=== PATIENT | female | born 1965 | race Caucasian/White ===

== ENCOUNTER → 2023-03-01 14:44 | Outpatient (CLI) | payer MEDICAID, SELFPAY | PROVIDERS: PCP Physician Assistant; Visit Provider Physician Assistant | DX: N39.0 Urinary tract infection, site not specified (principal) | CPT/HCPCS: 87086 ==

== ENCOUNTER → 2023-03-07 14:30 | Outpatient (CLI) | payer MEDICAID, SELFPAY | PROVIDERS: PCP Physician Assistant; Visit Provider Physician Assistant | DX: N39.0 Urinary tract infection, site not specified (principal) ==

== ENCOUNTER → 2023-03-07 14:42 | Outpatient (CLI) | payer MEDICAID, SELFPAY ==
[2023-03-07 15:24] LABS: Basophils # 0.1 K/mm3 (0-0.2); Basophils % 1.2 % (0.1-2.0); Eosinophils # 0.2 K/mm3 (0.0-0.4); Eosinophils % 3.6 % (0.1-12.0); Hematocrit 42.6 % (37.0-47.0); Hemoglobin 13.7 g/dL (12.2-16.2); Lymphocytes # 2.4 K/mm3 (0.7-4.5); Lymphocytes % 42.7 % (10-50); Mean Corpuscular Hemoglobin 28.8 pg (27.0-31.2); Mean Corpuscular Volume 89.8 fl (81-99); Mean Platelet Volume 7.2 fl (7.4-10.4); Monocytes # 0.3 K/mm3 (0.1-1.0); Monocytes % 6.3 % (1.7-9.3); Neutrophils # 2.6 K/mm3 (1.8-7.8); Neutrophils % 46.3 % (37.0-80.0); Platelet Count 237 K/mm3 (142-424); Red Blood Count 4.75 M/mm3 (4.20-5.40); Red Cell Distribution Width 13.7 % (11.5-17.5); White Blood Count 5.5 K/mm3 (4.8-10.8)
[2023-03-07 15:46] LABS: Alanine Aminotransferase 75 U/L (12-78); Albumin Level 4.5 g/dl (3.5-5.0); Albumin/Globulin Ratio 1.9 (1.1-1.8); Alkaline Phosphatase 55 U/L (38-126); Anion Gap 15.6 mEq/L (5-15); Aspartate Amino Transferase 60 U/L (14-36); Bilirubin,Total 0.3 mg/dl (0.2-1.3); Blood Urea Nitrogen 8 mg/dl (7-17); Calcium 9.4 mg/dl (8.4-10.2); Carbon Dioxide 29 mmol/L (22.0-30.0); Chloride 101 mmol/L (98-107); Chol/HDL Ratio 3.3 (1-3.5); Cholesterol 220 mg/dl (140-200); Estimated Glomerular Filt Rate 87 ml/min (>60); GFR (African American) 105 ML/MIN (>60); Globulin 2.4 g/dL (1.3-3.2); Glucose 105 mg/dl (74-100); HDL Cholesterol 66 mg/dl (40-60); Potassium 3.6 mmoL/L (3.5-5.1); Sodium 142 mmol/L (136-145); Total Protein,Serum 6.9 g/dl (6.3-8.2); Triglycerides 213 mg/dl (30-150); VLDL Cholesterol 43 mg/dL (0-40)
[2023-03-07 15:57] LABS: Direct LDL Cholesterol 109.82 mg/dL (100-129)
[2023-03-07 16:01] LABS: Free T4 (Free Thyroxine) 0.94 ng/dl (0.78-2.19)
== END ==
PROVIDERS: PCP Physician Assistant; Visit Provider Physician Assistant
DX: R53.83 Other fatigue (principal); E03.9 Hypothyroidism, unspecified; K59.00 Constipation, unspecified; N39.0 Urinary tract infection, site not specified
CPT/HCPCS: 36415; 80053; 80061; 84439; 84443; 85025; 87086

== ENCOUNTER → 2023-06-24 09:25 | Outpatient (CLI) | payer MEDICAID, SELFPAY ==
--- NOTE | 2023-06-24 09:25 | MR_ITS ---
FINAL REPORT CLINICAL HISTORY: left knee pain crunching when going down stairs fall x 1 year ago FINDINGS: Multi planar MR imaging was performed of the left knee. The anterior and posterior cruciate ligaments are intact. The quadriceps and patellar tendons are intact. The medial and lateral menisci are intact without evidence of tear. The medial and lateral collateral ligaments appear intact. The medial and lateral retinacula appear intact. There is no evidence of bone marrow edema. There are multiple osteochondral lesions in the lateral articular facet of the patella. A tiny popliteal cyst is noted. No evidence of soft tissue inflammatory reaction. IMPRESSION: No evidence of significant internal derangement. Multiple osteochondral lesions along the left lateral articular facet of the patella. Small popliteal cyst. Reviewed, Interpreted and Dictated by Donovan Soliz MD Transcribed by Brook Ty Authenticated and [facility]
== END ==
PROVIDERS: PCP Physician Assistant; Visit Provider Physician Assistant
DX: M25.562 Pain in left knee (principal)
CPT/HCPCS: 73721

== ENCOUNTER → 2023-09-07 23:00 | Outpatient (CLI) | payer MEDICAID, SELFPAY ==
[2023-09-07 18:57] LABS: Amphetamine/Metha Screen,Urine Negative ng/ml (<1000)
[2023-09-07 18:58] LABS: Barbiturates Screen,Urine Negative ng/ml (<200)
[2023-09-07 18:59] LABS: Benzodiazepines Screen,Urine Negative ng/ml (<200)
[2023-09-07 19:03] LABS: Phencyclidine Screen,Urine Negative ng/ml (<25)
[2023-09-07 19:12] LABS: Cannabinoid Screen,Urine Positive ng/ml (<50)
[2023-09-07 19:31] LABS: Opiate Screen,Urine Negative ng/ml (<300)
[2023-09-07 19:32] LABS: Cocaine Screen,Urine Negative ng/ml (<300); Methadone Screen,Urine Negative ng/ml (<300)
== END ==
PROVIDERS: PCP Physician Assistant; Visit Provider Physician Assistant
DX: F41.9 Anxiety disorder, unspecified (principal)
CPT/HCPCS: 80305

== ENCOUNTER 2024-03-22 10:44 | Outpatient (CLI) | payer MEDICAID, SELFPAY ==
--- NOTE | 2024-03-22 10:49 | XR_ITS ---
FINAL REPORT CLINICAL HISTORY: lt knee pain FINDINGS: LEFT KNEE 3 views of the left knee were obtained. There is no acute fracture or dislocation. Visualized joint spaces are normally aligned. Soft tissues are unremarkable. IMPRESSION: No acute bony abnormality. Reviewed, Interpreted and Dictated by Dago Lal MD Transcribed by Yudi Oakley Authenticated and [facility]
== END 2024-03-22 23:59 | disposition home or self-care (01) ==
LOC: RAD 10:45
PROVIDERS: PCP Family Medicine; Visit Provider Physician Assistant Surgical
DX: M25.562 Pain in left knee (principal)
CPT/HCPCS: 73562

== ENCOUNTER 2025-03-28 10:14 | Outpatient (CLI) | payer MEDICAID, SELFPAY ==
--- OUTSIDE RECORDS SUMMARY | 2025-03-19 15:00 | XMS_ITS | Encounter Summary ---
Author Organization [facility] In iatives Address [address] [place] [address] Care Team Providers Care Cutter Plastics Rolls Name Role Phone Ho Deras DO Primary Care Provider [phone] Reason for Referral * Surgical (Routine) - New Request Specialty Diagnoses / Procedures Referred By Nilson zuleta Referred To Contact Orthopedic Surgery Diagnoses Pain in joint of left shoulder Ho Deras DO [address] [place] [address] Phone: tel: Referral ID Status Reason Start Date Expiration Date Visits Requested Visits Authorized [id number] New Request Specialty Services Required 03/19/2025 03/19/2026 1 1 Reason for Visit * Reason Comments Follow-up Patient is here toda y for a follow up.PHQ: 0 Encounter Details Date Type Department Care Team (Late st Contact Info) Description 03/19/2025 3:00 PM EDT Office Visit [facility] Primary Care - [facility] [address] [place] [address] Ho Deras DO [address] [place] [address] Pain in joint of left shoulder (Primary Dx); Hot flashes due to menopause; Anxiety; Primary insomnia; Cervical radiculopathy; Restless legs syndrome Social History Tobacco Use Types Packs/Day Years Used Date Smoking Tobacco: Never Smokeless Tobacco: Never Alcohol Use Standard Drinks/Week Comments Yes 0 (1 standard drink = 0.6 oz pur e alcohol) PHQ-2 Answer Date Recorded Patient Health Questionnaire-2 Score 0 03/19/2025 Interpersonal Safety Answer Date Record ed Family or friends hurt you Not on file 10/20 Family or friends insult you Not on file Family or friends threaten you Not on file 0 10/20/2023 Family or friends scream or curse at you Not on file 10/20/2023 Housing Stability Answer Date Recorded Living situation today Not on file Living situation problems Not on file 2023 Family and Community Support Answer Wilbur e Recorded Help with Day to Day Activities Not on file 10/20/2023 Feeling Lonely or Isolated Not on file 10/20 Educational Attainment Answer Date Johnny rded Speak language other than Jordanian at home Not on file 10/20/2023 Want help with school or training Not on file 10/20/2023 Depression Answer Date Recorded PHQ-2 Risk Not on file 10/20/2023 Disabilities Answer Date Recorded Difficulty concentrating Not on file 024 Difficulty doing errands alone Not on file 0 10/20/2023 Substance Use Answer Date Recorded Used prescription meds for non-medical reasons N ot on file 10/20/2023 Used illegal drugs past 12 months Not on file 10/20/2023 Comments Unknown Sex and Gender Information Value Date Recorded Sex Assigned at Not on file Legal Sex Female 5:13 PM CDT Gender Identity Not on file Sexual Orientation Not on file documented as of this encounter Last Filed Vital Signs Vital Sign Reading Time Taken Comments Blood Pressure 124/76 03/19/2025 2:58 PM EDT Pulse 78 03/19/2025 2:58 PM EDT Temperature - - Respiratory Rate - - Oxygen Saturation 96% 03/19/2025 2:58 PM EDT Inhaled Oxygen Concentration - - Weight 77.1 kg (170 lb) 03/19/2025 2:58 PM EDT Height 162.6 cm (5' 4 ) 03/19/2025 2:58 PM EDT Body Mass Index 29.18 03/19/2025 2:58 PM EDT documented in this encounter Progress Notes * Ho Deras, - 03/19/2025 3:22 PM EDTAssociated Problem(s): Restless legs syndrome Cont on gabapentin 600 at bedtime. Cont on ropinirol 1 mg. Taking one at bedtime at this time. * Ho Deras DO - 03/19/2025 3:20 PM EDTAssociated Problem(s): Cervical radiculopathy Sundar reviewed. She cont on gabapneitn at bedtime. * Ho Deras DO - 03/19/2025 3:17 PM EDTAssociated Problem(s): Anxiety Taper down paroxetine to 20mg daily. Worse due to grief. Encouraged counseling. Start remeron 30 at bedtime. * Ho Deras DO - 03/19/2025 3:16 PM EDTAssociated Problem(s): Hot flashes due to menopause Taper down paxil to 20mg * Ho Deras DO - 03/19/2025 3:09 PM EDTAssociated Problem(s): Arthralgia of shoulder Will refer to ortho due ot hx of rotator cuff tear and recent fall for further evaluation. * Ho Deras DO - 03/19/2025 3:00 PM EDT 03/19/2025 Subjective: Brad Terry is a 59 y.o. female. Chief Complaint Patient presents with Follow-up Patient is here today for a follow up. PHQ: 0 HarrisonKarla izquierdocecil patient presents for follow up Cervical radiculopathy - cont on gabapentin 600 at bedtime RLS - ropinirole Insomnia - quetiapine 50mg She reports this issue is worse. She endorses grief related. Reports unable to shut her mind down Anxiety - paxil 20mg - [place]. She reports not doing this. Reports this session was completed. She is tearful in this conversation. Reports tired of crying. Encouraged he to get counseling. CMP reviewed from 10/02/24 lipids last 08/2024 Having incresaed left shoulder issues. She had surgery on this 3-4 years ago ago. She had surgery at . States she fell about 3 weeks ago on her right side but the next day she had issues w/ the left shoulder. She has seen chiro and tried some manipulation. She states has tried tylenol w/ little benefit. Current Outpatient Medications: azelastine (ASTELIN) 137 mcg (0.1 %) nasal spray, 1 spray by each nostril route 2 (two) times dailyUse in each nostril as directed., Disp: 30 mL, Rfl: 3 cyclobenzaprine (FLEXERIL) 10 MG tablet, Take 1 tablet by mouth 2 (two) times daily., Disp: , Rfl: docusate sodium (COLACE) 100 MG capsule, Take 1 capsule (100 mg total) by mouth 2 (two) times dailyas needed for constipation., Disp: 60 capsule, Rfl: 1 eletriptan (RELPAX) 40 MG tablet, TAKE ONE TABLET BY MOUTH AT ONSET OF HEADACHES OR MIGRAINE FOR 1 DOSE. DO NOT EXCEED 2 TABLETS IN 24 HOURS., Disp: 6 tablet, Rfl: 2 fluticasone propionate (FLONASE) 50 mcg/actuation nasal spray, 1 spray by each nostril route daily., Disp: 15.8 mL, Rfl: 3 gabapentin (NEURONTIN) 600 MG tablet, Take 1 tablet (600 mg total) by mouth nightly. Max Daily Amount: 600 mg, Disp: 90 tablet, Rfl: 1 galcanezumab-gnlm (Emgality Pen) 120 mg/mL pen, Inject by subcutaneous route for 30 days., Disp: , Rfl: methocarbamoL (ROBAXIN) 750 MG tablet, TAKE 1 TABLET BY MOUTH 2 TIMES A DAY NEEDED FOR MUSCLE SPASMS, Disp: 30 tablet, Rfl: 1 mirtazapine (REMERON) 30 MG tablet, Take 1 tablet (30 mg total) by mouth nightly., Disp: 30 tablet,Rfl: 2 montelukast (SINGULAIR) 10 mg tablet, TAKE 1 TABLET BY MOUTH DAILY, Disp: 90 tablet, Rfl: 0 multivitamin capsule, Take 1 capsule by mouth., Disp: , Rfl: Nurtec ODT 75 mg TbDL, TAKE ONE TABLET BY MOUTH DAILY NEEDED FOR MIGRAINE., Disp: 15 tablet, Rfl: 2 omega 0-vei-bfo-fish oil (Fish OiL) 120-180-500 mg Cap, Take 500 mg by mouth., Disp: , Rfl: PARoxetine (PAXIL) 20 MG tablet, Take 1 tablet (20 mg total) by mouth in the morning., Disp: 90 tablet, Rfl: 1 QUEtiapine (SEROquel) 50 MG tablet, Take 1 tablet (50 mg total) by mouth nightly., Disp: 90 tablet,Rfl: 1 rOPINIRole (REQUIP) 1 MG tablet, Take 1 tablet (1 mg total) by mouth nightly., Disp: 90 tablet, Rfl: 1 Review of Systems Respiratory: Negative. Cardiovascular: Negative. Gastrointestinal: Negative. Musculoskeletal: Positive for arthralgias. Psychiatric/Behavioral: Positive for decreased concentration, dysphoric mood and sleep disturbance.The patient is nervous/anxious. All other systems reviewed and are negative. Past Medical History: Diagnosis Date Cubital tunnel syndrome, left Depression Dermatofibroma of calf Knee pain Lateral epicondylitis Past Surgical History: Procedure Laterality Date CARPAL TUNNEL RELEASE COLONOSCOPY in 2014 ELBOW SURGERY TUBAL LIGATION Family History Problem Relation Name Age of Onset Pancreatic cancer Father Liver cancer Father Coronary artery disease Father Breast cancer Maternal Grandmother reports that she has never smoked. She has never used smokeless tobacco. She reports current alcohol use. Objective: BP 124/76 (BP Location: Left arm, Patient Position: Sitting) Pulse 78 Ht 1.626 m (5' 4 ) Wt 77.1 kg (170 lb) SpO2 96% BMI 29.18 kg/m?? Body mass index is 29.18 kg/m??. Physical Exam Vitals and nursing note reviewed. Constitutional: Appearance: Normal appearance. HENT: Head: Normocephalic and atraumatic. Mouth/Throat: Mouth: Mucous membranes are dry. Pharynx: Oropharynx is clear. Eyes: Pupils: Pupils are equal, round, and reactive to light. Cardiovascular: Rate and Rhythm: Normal rate and regular rhythm. Pulses: Normal pulses. Heart sounds: Normal heart sounds. Pulmonary: Effort: Pulmonary effort is normal. Breath sounds: Normal breath sounds. Abdominal: General: Abdomen is flat. Palpations: Abdomen is soft. Musculoskeletal: General: Normal range of motion. Cervical back: Neck supple. Skin: General: Skin is warm and dry. Neurological: Mental Status: She is alert. Psychiatric: Mood and Affect: Mood normal. Behavior: Behavior normal. Judgment: Judgment normal. No results found for this visit on 03/19/25 (from the past 24 hours). Assessment: Problem List Items Addressed This Visit Arthralgia of shoulder - Primary Overview S/p left shoulder surgery at Current Assessment & Plan Will refer to ortho due ot hx of rotator cuff tear and recent fall for further evaluation. Relevant Orders Ambulatory referral to Orthopedic Surgery Cervical radiculopathy Current Assessment & Plan Sundar reviewed. She cont on gabapneitn at bedtime. Relevant Medications gabapentin (NEURONTIN) 600 MG tablet rOPINIRole (REQUIP) 1 MG tablet Hot flashes due to menopause Current Assessment & Plan Taper down paxil to 20mg Relevant Medications PARoxetine (PAXIL) 20 MG tablet Insomnia Relevant Medications QUEtiapine (SEROquel) 50 MG tablet Restless legs syndrome Current Assessment & Plan Cont on gabapentin 600 at bedtime. Cont on ropinirol 1 mg. Taking one at bedtime at this time. Relevant Medications rOPINIRole (REQUIP) 1 MG tablet Anxiety Current Assessment & Plan Taper down paroxetine to 20mg daily. Worse due to grief. Encouraged counseling. Start remeron 30 at bedtime. Relevant Medications mirtazapine (REMERON) 30 MG tablet PARoxetine (PAXIL) 20 MG tablet Return in about 6 weeks (around 04/30/2025) for Recheck. Ho Deras DO documented in this encounter Plan of Treatment Upcoming Encounters Date Type Department Care Team (Late st Contact Info) Description 04/30/2025 3:00 PM EDT Office Visit [facility] Primary Care - [facility] [address] [place] [address] Ho Deras DO [address] [place] [address] Scheduled Referrals Name Type Priority Associated Diagnoses Order Schedule Ambulatory referral to Orthopedic Surgery Outpatient Referral Routine Pain in joint of left shoulder Expected: 03/19/2025, Expires: 03/19/2026 documented as of this encounter Visit Diagnoses Diagnosis Pain in joint of left shoulder- Primary Hot flashes due to menopause Anxiety Anxiety state, unspecified Primary insomnia Persistent disorder of initiating or maintaining sleep Cervical radiculopathy Brachial neuritis or radiculitis nos Restless legs syndrome Restless legs syndrome (RLS) documented in this encounter Care Teams Cutter Plastics Rolls Relationship Specialty Start Date End Date Ho Deras DO [address] [place] [address] PCP - General Family Medicine 08/24/22 documented as of this encounter
--- NOTE | 2025-03-28 10:17 | XR_ITS ---
FINAL REPORT CLINICAL HISTORY: Left shoulder pain, fall 3 weeks ago COMPARISON: None FINDINGS: Two views of the left shoulder show the glenohumeral joint is intact. There is an age-indeterminate left clavicle fracture. Dedicated clavicle radiographs recommended. Moderate AC joint arthropathy is noted. IMPRESSION: Age indeterminate distal clavicle fracture. Recommend clavicle radiographs. Reviewed, Interpreted and Dictated by Dago Lal MD Transcribed by Kaylen Harrison Authenticated and [facility]
--- OUTSIDE RECORDS SUMMARY | 2025-03-28 10:18 | XMS_ITS | Encounter Summary ---
Author Organization [facility] In iatives Address [address] [place] [address] Care Team Providers Care Terminal System Operator Name Role Phone Ho Deras DO Primary Care Provider [phone] Encounter Details Date Type Department Care Team (Latest Contact Info) Description 03/19/2025 Travel Social History Tobacco Use Types Packs/Day Years [...] Date Johnny rded Speak language other than Sudanese at home Not on file 10/20/2023 Want [...] on file documented as of this encounter Plan of Treatment Upcoming Encounters Date Type Department Care Team (Late st Contact Info) Description 04/30/2025 3:00 PM EDT Office Visit [facility] Primary Care - [facility] [address] [place] [address] Ho Deras DO [address] [place] [address] documented as of this encounter Visit Diagnoses Not on filedocumented in this encounter Care Teams Terminal System Operator Relationship Specialty Start Date End Date Ho Deras DO [address] [place] [address] PCP - General Family Medicine 08/24/22 documented as of this encounter
--- OUTSIDE RECORDS SUMMARY | 2025-03-28 10:18 | XMS_ITS | Encounter Summary ---
Author Organization [facility] In [facility]atives Address [address] [place] [address] Care Team Providers Care Correctional Counselor Name Role Phone Ho Deras DO Primary Care Provider [phone] Reason for Visit * Reason Onset Date Comments Medication Refill 05/14/2024 Encounter Details Date Type Department Care Team (Late st Contact Info) Description 05/14/2024 Telephone [facility] Primary Care - [facility] [address] [place] [address] Ho Deras DO [address] [place] [address] Medication Refill Social History Tobacco Use Types Packs/Day Years Used Date Smoking Tobacco: Never Smokeless Tobacco: Never Alcohol Use Standard Drinks/Week Comments Yes 0 (1 standard drink = 0.6 oz pur e alcohol) PHQ-2 Answer Date Recorded Patient Health Questionnaire-2 Score 0 12/27/2023 Interpersonal Safety Answer Date Record ed Family [...] Date Johnny rded Speak language other than South African at home Not on file 10/20/2023 Want [...] on file documented as of this encounter Miscellaneous Notes * Telephone Encounter - Nemo Oneill - 05/15/2024 3:24 PM EDT Next Visit: 07/03/2024 Last Visit: 12/27/2023 Ho Deras, DO Caller Message Patient called in to check on refills,went to pharmacy and they weren't there yet and was concernedthere was a issue. Made patient aware of refill time frame. Wanted a call back if there was a issueor if she needed to come in to be seen Is follow up action needed? Explain: Caller Name:Brad Terry Relation to patient: Best Call Back OK to leave message on voicemail: * Telephone Encounter - Clara Dacosta - 05/14/2024 10:41 AM EDT Reason for Call: Refill request (not on med list) Next Visit: 07/03/2024 Last Visit: 12/27/2023 Ho Deras, DO Appointment offered if no next visit scheduled? No Is patient requesting more than one medication refill? Yes Medication name: QUEtiapine (SEROquel) 100 MG tablet rOPINIRole (REQUIP) 1 MG tablet montelukast (SINGULAIR) 10 mg tablet Quantity: 90 day supply Last Refill: n/a [facility] [id number] - [place] [address] AT [facility] [address] [phone] Patient Advised: Refills can take up to 72 hours to be verified, processed, and refilled, Please contact the pharmacy to verify the prescription is complete and ready for pick-up. Additional information: Caller Name: Relation to patient: Self Best Call Back OK to leave message on voicemail: documented in this encounter Plan of Treatment Upcoming Encounters Date Type Department Care Team (Late st Contact Info) Description 04/30/2025 3:00 PM EDT Office Visit [facility] Primary Care - [facility] [address] [place] [address] Ho Deras DO [address] [place] [address] documented as of this encounter Visit Diagnoses Not on filedocumented in this encounter Care Teams Correctional Counselor Relationship Specialty Start Date End Date Ho Deras DO [address] [place] [address] PCP - General Family Medicine 08/24/22 documented as of this encounter
--- OUTSIDE RECORDS SUMMARY | 2025-03-28 10:18 | XMS_ITS | Data Portability ---
Author Organization [place] - [facility] - [place] & [place] Luis ADMIN Address [address] [place] [id number] Care Team Providers Care Vessel Specialist Name Role Phone RANJIT SEE Primary Care Provider Assessment Encounter Date Assessment Date Assessment LastModified by Organization Details LastModified Time 05/22/2024 05/22/2024 58 y/o F with long hx of refractory chronic migraine. Having daily severe headaches. Has tried and failed multiple treatments. Recommend EMgality, Ubrelvy prn, Trudhesa prn. Reviewed diagnosis and treatment plan. f/u as scheduled. [email or web address] Not available 05/22/2024 10:20:33 10/04/2024 10/04/2024 -Emgality subq inj -Ubrelvy prn -reviewed diagnosis and treatment plan -f[facility]u as scheduled [facility] Not available 10/04/2024 10:41:39 Plan of Treatment Reminders Order Date Submit Date Provider Last Modified By Organization Details Last Modified Time Details Appointments OV EST 15 2025 10:30A M Abad Loving M.D Not available Not available Not available Lab None recorded . Referral None recorded . Procedures None recorded . Surgeries None recorded . Imaging None recorded . Medication Orders Emgality Pen 120 mg/mL subcutan eous pen injector 2023 024 [facility] [id number], [address], [place], [address], 08/17/2024 13:35:35 Ubrelvy 100 mg tablet 2023 024 [email or web address] [facility] [id number], [address], [place], [address], 08/17/2024 15:36:54 Trudhesa 0.725 mg/pump act. (4 mg/mL) nasal spray 2023 024 [email or web address] [facility], [address] [place] [address], [address], 10/04/2024 10:28:21 Patient TargetsNo targets recorded. Patient InstructionsNo instructions recorded. Reason for Referral None Reported. Procedures Surgical History Date Name Laterality Status Provider Name and Address Organization Details Recorded Time 3 completed Kathy Quick [facility] - [place] & [place] 05/22/2024 09:47:23 3 Date of Last Pap Smear completed Kathy Quick [facility] - [place] & [place] 05/22/2024 09:47:23 1 Date of Last Colonoscopy completed Kathy Quick [facility] - [place] & [place] 05/22/2024 09:47:23 1 Other completed Kathy Quick [facility] - [place] & [place] 05/22/2024 09:47:29 0 Other completed Kathy Quick [facility] - [place] & [place] 05/22/2024 09:47:29 7 Sinus Surgery completed Kathy Quick [facility] - [place] & [place] 05/22/2024 09:47:29 6 Other completed [facility] [place] 05/22/2024 09:47:29 5 Other completed Kathy Quick [facility] & [place] 05/22/2024 09:47:29 2 Abdominal Surgery completed Kathy Quick [facility] - [place] & [place] 05/22/2024 09:47:29 9 Other completed Kathy Quick [facility] - [facility] & [place] 05/22/2024 09:47:28 Carpal tunnel [facility] [place] 05/17/2024 16:50:50 repair of elbow completed [facility] [place] 05/17/2024 16:51:00 ligation of fallopian tube completed [facility] [place] 05/17/2024 16:51:05 Colonoscopy completed Kathy ESPARZA [facility] & [place] 05/17/2024 16:51:11 Imaging Results None recorded. Procedure Notes None recorded. Medical Equipment None Reported. Allergies Allergen ID Allergen Name Allergen Category Reaction Reaction Severity Criticality Documentation Date Start Date Code Code System Note Provider Name and Address Organization Details Recorded Time [id number] cat dander environme nt eye redness severe Not available 05/22/2024 [id number] UNK Kathy Ritter [facility] & [place] 09:47:17 Medications Name Sig Start Date Stop Date Status Note LastModified by Organization Details LastModified Time janet-[place] liquid active Not Available Not Available Not Available celecoxib 200 mg capsule 05/21 completed Not Available Not Available Not Available methocarbam ol 500 mg tablet 05/21 completed Not Available Not Available Not Available gabapentin 600 mg tablet Take 1 tablet every day by oral route at bedtime for 90 days. active Not Available Not Available No t Available ropinirole 1 mg tablet Take 1 tablet every day by oral route for 90 days. active Not Available Not Available No t Available tizanidine 4 mg tablet 05/21 completed Not Available Not Available Not Available prednisone 20 mg tablet 10/04 completed Not Available Not Available Not Available acyclovir 400 mg tablet 05/21 completed Not Available Not Available Not Available quetiapine 100 mg tablet 10/04 completed Not Available Not Available Not Available lorazepam 0.5 mg tablet active Not Available Not Available Not Available methocarbam ol 750 mg tablet 05/21 completed Not Available Not Available Not Available docusate sodium 100 mg capsule active Not Available Not Available N ot Available lidocaine HCl 2 % mucosal solution active Not Available Not Available Not Available montelukast 10 mg tablet active Not Available Not Available Not Available paroxetine 40 mg tablet Take 1 tablet every day by oral route for 90 days. active Not Available Not Available No t Available doxycycline hyclate 100 mg tablet 10/04 completed Not Available Not Available Not Available amoxicillin 875 mg-potassiu m clavulanate 125 mg tablet 10/04 completed Not Available Not Available Not Available eletriptan 40 mg tablet Take by oral route for 3 days. active Not Available Not Available No t Available quetiapine 50 mg tablet active Not Available Not Available Not Available Dymista 137 mcg-50 mcg/spray nasal spray active Not Available Not Available Not Available Trintellix 5 mg tablet 05/21 completed Not Available Not Available Not Available Emgality Pen 120 mg/mL subcutaneou s pen injector Inject by subcutane ous route for 30 days. active Not Available Not Available No t Available Ubrelvy 100 mg tablet active Not Available Not Available No t Available Nurtec ODT 75 mg disintegrat ing tablet Take by oral route for 30 days. active Not Available Not Available No t Available Trudhesa 0.725 mg/pump act. (4 mg/mL) nasal spray one spray in each nostril prn headache 10/03 completed Not Available Not Available Not Available Vitals Date Recorded Body height Body mass index (BMI) Body weight Body temperature Oxygen saturation Oxygen saturation in Arterial blood by Pulse oximetry Heart rate Systolic blood pressure Diastolic blood pressure Provider Name and Address Organization Details Last Updated DateTime 5 160.02 cm 30.4 kg/m2 46062.1 7 g 97.8 [degF] 98 % 98 % 85 /min 120 mm[Hg] 80 mm[Hg] Kathy ESPARZA - [facility] & [place] 5 10:27:54 Date Recorded Body height Body mass index (BMI) Body weight Body temperature Oxygen saturation Oxygen saturation in Arterial blood by Pulse oximetry Heart rate Systolic blood pressure Diastolic blood pressure Provider Name and Address Organization Details Last Updated DateTime 4 160.02 cm 31.9 kg/m2 31118.3 5 g 97.1 [degF] 97 % 97 % 96 /min 110 mm[Hg] 60 mm[Hg] Kathy ESPARZA - [facility] & [place] 09:46:16 Social History Question Answer Notes LastModified by [employer] Details LastModified Time Tobacco Smoking Status Never Smoker Kathy Ritter [facility], [place] - [facility] - [place] & [place] 05/22/2024 09:47:27 Do You Have An Advance Directive? No [email or web address] Information not available 05/22/2024 Are You Blind Or Do You Have Difficulty Seeing? No [email or web address] Information not available 05/22/2024 What Was The Date Of Your Most Recent Tobacco Screening? 05/21/2024 [email or web address] Information not available 05/22/2024 Are You Passively Exposed To Smoke? No Information not available 05/22/2024 Sex: Female Functional Status Question Answer Note LastModified by [employer] Details LastModified Time Do you use any illicit or recreational drugs? No Information not available 05/22/2024 What is your level of alcohol consumption? Occasional [email or web address] Information not available 05/22/2024 What is your exercise level? Occasional [email or web address] Information not available 05/22/2024 Mental Status Question Answer Note LastModified by Organization D etails LastModified Time Do you feel stressed (tense, restless, nervous, or anxious, or unable to sleep at night)? [id number] [email or web address] Information not available 05/22/2024 Family History Relationship Description Onset Age of this Age Resolved Age Notes LastModified by Organization Details LastModified Time Father Malignant neoplastic disease pancre atic, liver [email or web address] Not available 10/04/2024 10:23:31 Father Heart disease Not available 2023 16:51:42 Maternal Grandmother Malignant tumor of breast [email or web address] Not available 10/04 10:23:31 Medical History Condition Response Depression Y Arthritis Y Headaches Y Gynecological History Statement/Question Response Abnormal Pap N Date of Last Colonoscopy 08/21/2021 06/14/2023 Sexually Active? N Date of Last Pap Smear 2023 Current Control Method Tubal Ligat ion Obstetrics History GPAL:G 0 P 0 0 0 0 Past Encounters Encounter ID Performer Location Encounter Start Date Encounter Closed Date Diagnosis/Indication Diagnosis SNOMED-CT Code Diagnosis ICD10 Code Diagnosis Note [id number] Ambar Yusuf [facility] [address] [address] [place] [phone] 05/22/2024 09:29:41 05/22/2024 10:12:00 Chronic intractable migraine without aura 7025215656 89660 G43.240 [id number] Ambar Yusuf [facility] [address] [address] [place] [phone] 10/04/2024 10:13:58 10/04/2024 10:44:02 Chronic intractable migraine without aura 5049615612 33672 G43.719 Health Concerns Section Related Observation LastModified by Organization Detai ls LastModified Time None Recorded Concern Status LastModified by Organization Details LastModified Time None Recorded Advance Directives Directive N: Payers Insurance Date Sequence Insurance Name Policy Number Policy Hines Covered Member ID Hines Member ID Guarantor Name 10/03/2024 1 [facility] (MEDICAID HMO) Brad Terry [id number] Brad Terry Notes Date Note Type Note Provider Name and Address Organization Details Recorded Time 05/22/2024 text/html Ms. Brad Terry is a 58 y/o F who is referred to clinic for evaluation. She has had migraine headaches since age 18. She reports her headaches are more frequent and severe over the past few years. She reports posterior and temporal unilateral left throbbing pulsating severe headaches associated with photophobia, phonophobia, visual aura, neck pain, and dizziness lasting hours to days.Mother has migraine.She has tried Eletriptan, Acetaminophen, Nurtec, Sumatriptan, NSAIDs, Amitritpyline, Propranolol, Topiramate. Abad Loving M.D [address] [place] [address], [address], [place], [address], [facility] - [place] & [place] 05/22/2024 10:25:52 10/04/2024 text/html Ms. Brad Terry is a 59 y/o F who returns for follow up today.She has had migraine headaches since age 18. She reports her headaches are more frequent and severe over the past few years. She reports posterior and temporal unilateral left throbbing pulsating severe headaches associated with photophobia, phonophobia, visual aura, neck pain, and dizziness lasting hours to days.Mother has migraine.She has tried Eletriptan, Acetaminophen, Nurtec, Sumatriptan, NSAIDs, Amitritpyline, Propranolol, Topiramate.Jocelynn gerber she is taking Emgality and prn Ubrelvy. Abad Loving M.D [address] [place] [address], [address], [place], [address], [place] - [facility] - [place] & [place] 10/04/2024 10:42:19 OBGyn Episode No OBEpisode recorded.
--- OUTSIDE RECORDS SUMMARY | 2025-03-28 10:18 | XMS_ITS | Clinical Summary ---
Author Organization Healthcare Address [address] [place] [address] Care Team Providers Care Ager Operator Name Role Phone Ho Deras DO Primary Care Provider [phone] Allergies No known active allergies Medications Azelastine-Flut icasone 137-50 MCG/ACT suspension 08/06/2015 Active cyclobenzaprine (Flexeril) 10 MG tablet 08/03/2021 Active eletriptan (Relpax) 40 MG tablet Take 40 mg by mouth. 10/03/1999 Active gabapentin (Neurontin) 600 MG tablet 10/03/2015 Active methocarbamol (Robaxin) 500 MG tablet 10/19/2016 Active PARoxetine (Paxil) 20 MG tablet Take 20 mg by mouth 1 (one) time each day. 07/12/2019 Active QUEtiapine (SEROquel) 100 MG tablet Take 50 mg by mouth 1 (one) time each day. 10/08/2015 Active rOPINIRole (Requip) 1 MG tablet Take 1 mg by mouth 1 (one) time each day. 04/20/2017 Active Multiple Vitamin (multivitamin) capsule Take 1 capsule by mouth 1 (one) time each day. Active fish oil ([place]-3) 500 MG capsule Take 500 mg by mouth 1 (one) time each day. Active rOPINIRole (Requip) 0.5 MG tablet 10/27/2016 Active Active Problems Problem Noted Date Diagnosed Date PONV (postoperative nausea and vomiting) 021 Liver disease 09/24/2021 History of psychiatric treatment 09/24/2021 Right shoulder pain 08/25/2021 Nontraumatic complete tear of right rotator cuff 08/25/2021 Family History Medical History Relation Name Comments Gout Other 1 Other cancer Other 2 Relation Name Status Comments Other 1 Other 2 Social History Tobacco Use Types Packs/Day Years Used Date Smoking Tobacco: Never Smokeless Tobacco: Never Alcohol Use Standard Drinks/Week Comments Yes 0 (1 standard drink = 0.6 oz pur e alcohol) occas Comments Unknown Sex and Gender Information Value Date Recorded Sex Assigned at Not on file Legal Sex Female 8:33 PM EDT Gender Identity Not on file Sexual Orientation Not on file Last Filed Vital Signs Vital Sign Reading Time Taken Comments Blood Pressure 100/76 11/26/2022 8:57 AM EST Pulse 70 11/26/2022 8:57 AM EST Temperature 37 C (98.6 F) 12/16/2021 11:14 AM EDT Respiratory Rate 21 09/24/2021 10:02 AM EST Oxygen Saturation 97% 12/16/2021 11:14 AM EDT Inhaled Oxygen Concentration - - Weight 74.8 kg (165 lb) 12/16/2021 11:14 AM EDT Height 160 cm (5' 3 ) 12/16/2021 11:14 AM EDT Body Mass Index 29.23 12/16/2021 11:14 AM EDT Plan of Treatment Health Maintenance Due Date Last Done Comments Dental Oral Exam 1966 Dental Prophylaxis 1966 Dental X-Ray: Bitewings 1966 Dental X-Ray: Full Mouth 1966 [facility]-Depression Screening 1966 [facility]-HIV Screening 1966 [facility]-Hepatitis C Screening 1966 [facility]-Infant/Child/Adol SDOH Screenings 1966 [facility]- SDOH Screenings 1984 [facility]-Adult SDOH Screenings 1984 [facility]-Pap Smear 1987 [facility]-Cervical Cancer Screening 1996 [facility]-HPV/Cotest 1996 [facility]-Hepatitis A Vaccines (2 of 3 - Hep A Twinrix risk 3-dose series) 08/13/2008 07/16/2008 [facility]-Hepatitis B Vaccines (2 of 3 - Hep B Twinrix 3-dose series) 08/13/2008 07/16/2008 CT Colonography 2011 FIT-DNA 2011 FIT 2011 FOBT 2011 Sigmoidoscopy 2011 [facility]-Breast Cancer Screening 2016 [facility]-Pneumococcal Vaccine: 50 + Years (1 of 1 - PCV) 2016 [facility]-Zoster Vaccines (1 of 2) 2016 ONN-VNUZM-32 Vaccine (1 - season) 2024 Colonoscopy 05/19/2025 05/19/2015 [facility]-Colorectal Cancer Screening 05/19/2025 [facility]-Influenza Vaccine (Seas[place] n Ended) 2025 07/28/2020, 08/03/2018, 07/15/2016 [facility]-DTaP,Tdap,and Td Vaccine s (3 - Td or Tdap) 09/13/2032 09/13/2022, 07/08/2011 HPV Vaccines Aged Out No longer eligi ble based on patient's age to complete this topic [facility]-HIB Vaccines Aged Out No longer e ligible based on patient's age to complete this topic [facility]-IPV Vaccines Aged Out No longer e ligible based on patient's age to complete this topic [facility]-Rotavirus Vaccines Aged Out No lo nger eligible based on patient's age to complete this topic Medical Devices Implanted Type Area Rental Agent Device Identifier Shelf Expiration Date Model / Serial / Lot [employer] Pro Rc 2.8mm W/2 1.3mm Hifi Ribbon - [id number] Implanted:Qty : 1 on 09/24/2021 by Yohan Barnhart MD at [facility] Henderson Right: Shoulder [employer]FS ([employer])-[id number] 01/19/2026 [id number] / / [id number] [employer] 2.8mm W/2 1.3mm Hifi Ribbon - [id number] Implanted:Qty : 1 on 09/24/2021 by Yohan Barnhart MD at [facility] [employer] Right: Shoulder [employer] ([employer])-[id number] 01/22/2026 [id number] / / [id number] Procedures Procedure Name Priority Date/Time Associated Diagnosis Comments COLONOSCOPY 05/19/2015 from Last 3 Months or Most Recently Relevant to Health Maintenance Results * COLONOSCOPY (05/19/2015) Anatomical Region Laterality Modality Endoscopy Narrative 05/19/2015 Ordered by an unspecified provider. us Historical Provider GI PROCEDURE ORDERABLES F inal Result from Last 3 Months or Most Recently Relevant to Health Maintenance Insurance [facility] MEDICAID [id number] MED[facility]ID DENTAL Care Teams Ager Operator Relationship Specialty Start Date End Date Ho Deras DO [address] [place] [address] PCP - General 02/13/21
--- OUTSIDE RECORDS SUMMARY | 2025-03-28 10:18 | XMS_ITS | Referral Summary ---
Author Organization [facility] Address [address] [place] [address] Care Team Providers Care Dry Can Tender Name Role Phone Ho Deras DO Primary Care Provider [phone] Encounters Date Type Department Care Team Description 03/25/[address] [address] Ho Deras DO 03/19/2025 Travel 03/19/2025 3:00 PM EDT Office Visit [address] [address] Ho Deras DO Pain in joint of left shoulder (Primary Dx); Hot flashes due to menopause; Anxiety; Primary insomnia; Cervical radiculopathy; Restless legs syndrome 03/18/[address] [address] Ho Deras DO Primary insomnia; Migraine without aura and without status migrainosus, not intractable 01/14/[address] [address] Ho Deras DO Hot flashes due to menopause from Last 3 Months Allergies Active Allergy Reactions Criticality Noted Date Comments Amitriptyline 09/13/2022 Not effective Aspirin Other (See Comments) 06/16/2021 Dyspepsia Vortioxetine 12/27/2023 Increased headaches Cariprazine 12/27/2023 Cat on ceiling increased anxiety Medications cyclobenzaprine (FLEXERIL) 10 MG tablet Take 1 tablet by mouth 2 (two) times daily. 021 Active multivitamin capsule Take 1 capsule by mouth. Active omega 5-ket-cmr-fish oil (Fish OiL) 120-180-500 mg Cap Take 500 mg by mouth. Active methocarbamoL (ROBAXIN) 750 MG tabletIndication s:Cervical radiculopathy TAKE 1 TABLET BY MOUTH 2 TIMES A DAY NEEDED FOR MUSCLE SPASMS 30 tablet 1 024 Active galcanezumab-gnl m (Emgality Pen) 120 mg/mL pen Inject by subcutaneous route for 30 days. Active docusate sodium (COLACE) 100 MG capsule Take 1 capsule (100 mg total) by mouth 2 (two) times daily as needed for constipation. 60 capsule 1 024 Active fluticasone propionate (FLONASE) 50 mcg/actuation nasal sprayIndications :Seasonal allergic rhinitis due to pollen 1 spray by each nostril route daily. 15.8 mL 3 025 Active azelastine (ASTELIN) 137 mcg (0.1 %) nasal sprayIndications :Seasonal allergic rhinitis due to pollen 1 spray by each nostril route 2 (two) times daily Use in each nostril as directed. 30 mL 3 025 Active eletriptan (RELPAX) 40 MG tabletIndication s:Migraine without aura and without status migrainosus, not intractable TAKE ONE TABLET BY MOUTH AT ONSET OF HEADACHES OR MIGRAINE FOR 1 DOSE. DO NOT EXCEED 2 TABLETS IN 24 HOURS. 6 tablet 2 025 Active Nurtec ODT 75 mg TbDLIndications: Migraine without aura and without status migrainosus, not intractable TAKE ONE TABLET BY MOUTH DAILY NEEDED FOR MIGRAINE. 15 tablet 2 025 Active mirtazapine (REMERON) 30 MG tabletIndication s:Anxiety Take 1 tablet (30 mg total) by mouth nightly. 30 tablet 2 025 Active PARoxetine (PAXIL) 20 MG tabletIndication s:Hot flashes due to menopause Take 1 tablet (20 mg total) by mouth in the morning. 90 tablet 1 025 Active QUEtiapine (SEROquel) 50 MG tabletIndication s:Primary insomnia Take 1 tablet (50 mg total) by mouth nightly. 90 tablet 1 025 Active gabapentin (NEURONTIN) 600 MG tabletIndication s:Cervical radiculopathy Take 1 tablet (600 mg total) by mouth nightly. Max Daily Amount: 600 mg 90 tablet 1 025 Active rOPINIRole (REQUIP) 1 MG tabletIndication s:Restless legs syndrome Take 1 tablet (1 mg total) by mouth nightly. 90 tablet 1 025 Active montelukast (SINGULAIR) 10 mg tablet TAKE 1 TABLET BY MOUTH DAILY 90 tablet 025 Active Nurtec ODT 75 mg TbDLIndications: Migraine without aura and without status migrainosus, not intractable TAKE ONE TABLET BY MOUTH DAILY NEEDED FOR MIGRAINE. 15 tablet 2 024 2024 Discontinued gabapentin (NEURONTIN) 600 MG tabletIndication s:Cervical radiculopathy Take 1 tablet (600 mg total) by mouth nightly. Max Daily Amount: 600 mg 90 tablet 1 025 2024 Discontinued(R eorder) QUEtiapine (SEROquel) 50 MG tabletIndication s:Primary insomnia Take 1 tablet (50 mg total) by mouth every night as needed (insomnia). 90 tablet 025 2024 Discontinued rOPINIRole (REQUIP) 1 MG tabletIndication s:Restless legs syndrome TAKE ONE TO TWO TABLETS BY MOUTH BY MOUTH EVERY NIGHT AT BEDTIME 180 tablet 1 025 2024 Discontinued(R eorder) montelukast (SINGULAIR) 10 mg tablet TAKE 1 TABLET BY MOUTH DAILY 90 tablet 025 2024 Discontinued PARoxetine (PAXIL) 40 MG tabletIndication s:Hot flashes due to menopause TAKE 1 TABLET BY MOUTH DAILY 90 tablet 1 025 2024 Discontinued(R eorder) QUEtiapine (SEROquel) 50 MG tabletIndication s:Primary insomnia TAKE ONE TABLET BY MOUTH EVERY NIGHT NEEDED FOR INSOMNIA 90 tablet 025 2024 Discontinued(R eorder) Active Problems Problem Noted Date Diagnosed Date Anxiety 11/06/2024 Assessment & Plan (03/19/2025 3:17 PM EDT): Taper down paroxetine to 20mg daily. Worse due to grief. Encouraged counseling. Start remeron 30 at bedtime. Assessment & Plan (11/06/2024 3:26 PM EST): Cont to sturggle w/ of her son. She is taking paxil at this time. She is taking 20mg She is under grief counseling in [place]. Arthralgia of shoulder 07/21/2021 Overview (03/19/2025): S/p left shoulder surgery at Assessment & Plan (03/19/2025 3:09 PM EDT): Will refer to ortho due ot hx of rotator cuff tear and recent fall for further evaluation. Assessment & Plan (12/27/2023 3:43 PM EDT): As needed methocarbamol for shoulder and neck spasm Cervical radiculopathy 07/21/2021 Assessment & Plan (03/19/2025 3:20 PM EDT): Lico reviewed. She cont on gabapneitn at bedtime. Cervicalgia 07/21/2021 Allergic rhinitis 01/28/2021 Hot flashes due to menopause 01/28/2021 Assessment & Plan (03/19/2025 3:16 PM EDT): Taper down paxil to 20mg Assessment & Plan (12/27/2023 3:39 PM EDT): Cont on paxil 40mg. She is doing well hot flash related w/ this medication. She is considering decreasing to 20mg. Insomnia 01/28/2021 Assessment & Plan (11/06/2024 3:22 PM EST): Reports this has been worse since of her son. She has started back on quetiapine. She is taking 50mg at this time. She plans to decreased this. Restless legs syndrome 01/28/2021 Assessment & Plan (03/19/2025 3:22 PM EDT): Cont on gabapentin 600 at bedtime. Cont on ropinirol 1 mg. Taking one at bedtime at this time. Assessment & Plan (11/06/2024 3:27 PM EST): Cont on gabapentin 600 at bedtime. Cont on ropinirole Assessment & Plan (12/27/2023 3:45 PM EDT): Cont on gabapentin. lico reviewed. Last fill in September for 90 tabs. She is not using this every day. More as needed based on RLS symtpoms. Encounter for general adult medical examination without abnormal findings 07/31/2020 Overview (07/03/2024): 07/03/24 c-scope 08/2021: at Mammogram @ [facility] 09/2022. Defers flu vaccine Assessment & Plan (07/03/2024 3:56 PM EDT): Wellness today. C-scope in 2020. Reviewed path from . Recheck in 2025 Mammo: she gets this at [facility] Defers flu vaccine. Patient Counseling: --Nutrition: Stressed importance of moderation in sodium/caffeine intake, saturated fat and cholesterol, caloric balance, sufficient intake of fresh fruits, vegetables, fiber, calcium, iron --Exercise: Stressed the importance of regular exercise. --Substance Abuse: Discussed cessation/primary prevention of tobacco, alcohol, or other drug use; driving or other dangerous activities under the influence --Injury prevention: Discussed safety belts, safety helmets, smoke detector --Dental health: Discussed importance of regular tooth brushing, flossing, and dental visits. --Immunizations reviewed. --Discussed benefits of screening colonoscopy. Assessment & Plan (09/13/2022 3:36 PM EST): Wellness today. Recheck lipids in spring 2022 Patient Counseling: --Nutrition: Stressed importance of moderation in sodium/caffeine intake, saturated fat and cholesterol, caloric balance, sufficient intake of fresh fruits, vegetables, fiber, calcium, iron --Exercise: Stressed the importance of regular exercise. --Substance Abuse: Discussed cessation/primary prevention of tobacco, alcohol, or other drug use; driving or other dangerous activities under the influence --Injury prevention: Discussed safety belts, safety helmets, smoke detector --Dental health: Discussed importance of regular tooth brushing, flossing, and dental visits. --Immunizations reviewed. --Discussed benefits of screening colonoscopy. Obesity 05/09/2020 Vitamin D deficiency 05/09/2020 Fatigue 02/20/2020 Spasm of muscle of lower back 02/12/2020 Knee pain Assessment & Plan (12/27/2023 3:40 PM EDT): Following w/ ortho. [facility] in [facility]. Has had benefit w/ injection from the left knee Migraine without aura and wi thout status migrainosus, not intractable Assessment & Plan (07/03/2024 4:02 PM EDT): She is following w/ migraine specialist. She reports injection once a month. Emgality injection. She reports she has tried ubrelvy, nurtec, eletriptan as well. States she has similar benefit w/ all of these. Assessment & Plan (12/27/2023 3:46 PM EDT): As needed nurtec odt As needed relpax as needed. Immunizations Name Administration Dates Next Due Hep A / Hep B 07/16/2008 Influenza Four-qiv Pf 07/28/2020,08/03/2018,07/03 Tdap 09/13/2022,07/08/2011 Social History Tobacco Use Types Packs/Day Years [...] Date Johnny rded Speak language other than Namibian at home Not on file 10/20/2023 Want [...] Pulse 78 03/19/2025 2:58 PM EDT Temperature 36.8 C (98.2 F) 11/06/2024 3:08 PM EST Respiratory Rate 16 10/02/2024 4:52 PM EST Oxygen Saturation 96% 03/19/2025 2:58 PM EDT Inhaled Oxygen Concentration - - Weight 77.1 kg (170 lb) 03/19/2025 2:58 PM EDT Height 162.6 cm (5' 4 ) 03/19/2025 2:58 PM EDT Body Mass Index 29.18 03/19/2025 2:58 PM EDT Plan of Treatment Upcoming Encounters Date Type Department Care Team (Late st Contact Info) Description 04/30/2025 3:00 PM EDT Office Visit [facility] [address] [place] [address] Ho Deras DO [address] [place] [address] Procedures Procedure Name Priority Date/Time Associated Diagnosis Comments MAMMOGRAPHY Routine 08/21/2024 9:53 AM EST LIPID PANEL Routine 08/08/2024 9:17 AM EST Encounter for general adult medical examination without abnormal findings from Last 3 Months or Most Recently Relevant to Health Maintenance Results * MAMMOGRAPHY (08/21/2024 9:53 AM EST) Anatomical Region Laterality Modality Other Historical Provider MD HEALTH MAINTENANCE Final Result * (ABNORMAL) Lipid panel (08/08/2024 9:17 AM EST) Cholesterol, Total 205(H) 100 - 199 mg/dL [facility] Triglycerides 93 0 - 149 mg/dL [facility] HDL Cholesterol 73 >39 mg/dL [facility] VLDL Cholesterol Conner 16 5 - 40 mg/dL [facility] LDL Calculated 116(H) 0 - 99 mg/dL [facility] Blood 08/08/2024 9:17 AM EST 08/08/2024 Narrative [facility] - 08/09/2024 4:07 AM EST Performed at: 01 - [facility] [place] [id number] Compressor Station Chief Engineer: Vivek Zambrano PhD, Phone: [phone] Ho Deras DO LAB BLOOD ORDERABLES Final Resul t [facility] from Last 3 Months or Most Recently Relevant to Health Maintenance Insurance [facility] Care Teams Dry Can Tender Relationship Specialty Start Date End Date Ho Deras DO [address] [place] [address] PCP - General Family Medicine 08/24/22
--- OUTSIDE RECORDS SUMMARY | 2025-03-28 10:18 | XMS_ITS | Encounter Summary ---
Author Organization [facility] Address [address] [place] [address] Care Team Providers Care Test Technician Name Role Phone Ho Deras DO Primary Care Provider [phone] Reason for Visit * Reason Comments Medication Refill Encounter Details Date Type Department Care Team (Late st Contact Info) Description 03/18/2025 Refill [facility] - [facility] [address] [place] [address] Ho Deras DO [address] [place], [place] [id number] Primary insomnia; Migraine without aura and without status migrainosus, not intractable Social History Tobacco Use Types Packs/Day Years [...] Date Johnny rded Speak language other than Mauritian at home Not on file 10/20/2023 Want [...] Description 04/30/2025 3:00 PM EDT Office Visit [facility] - [facility] [address] [place] [address] Ho Deras DO [address] [place] [address] documented as of this encounter Visit Diagnoses Diagnosis Primary insomnia Persistent disorder of initiating or maintaining sleep Migraine without aura and without status migrainosus, not intractable documented in this encounter Care Teams Test Technician Relationship Specialty Start Date End Date Ho Deras DO [address] [place] [address] PCP - General Family Medicine 08/24/22 documented as of this encounter
--- OUTSIDE RECORDS SUMMARY | 2025-03-28 10:18 | XMS_ITS | Encounter Summary ---
Author Organization [facility] Address [address] [place] [address] Care Team Providers Care Log Hauler Name Role Phone Ho Deras DO Primary Care Provider [phone] Reason for Visit * Reason Comments Medication Refill Encounter Details Date Type Department Care Team (Late st Contact Info) Description 03/25/2025 Refill [facility] Primary [facility] - [facility] [address] [place] [address] Ho Deras DO [address] [place], [place] [id number] Social History Tobacco Use Types Packs/Day Years [...] Date Johnny rded Speak language other than Turkish at home Not on file 10/20/2023 Want [...] Description 04/30/2025 3:00 PM EDT Office Visit [facility] - [facility] [address] [place] [address] Ho Deras DO [address] [place] [address] documented as of this encounter Visit Diagnoses Not on filedocumented in this encounter Care Teams Log Hauler Relationship Specialty Start Date End Date Ho Deras DO [address] [place] [address] PCP - General Family Medicine 08/24/22 documented as of this encounter
--- OUTSIDE RECORDS SUMMARY | 2025-03-28 10:18 | XMS_ITS | Encounter Summary ---
Author Organization [facility] Address [address] [place] [address] Care Team Providers Care Rubber Press Operator Name Role Phone Ho Deras DO Primary Care Provider [phone] Encounter Details Date Type Department Care Team (Late st Contact Info) Description 08/24/2022 Outside Orders [facility] Admitting [address] [place] [address] Ho Deras DO [address] [place] [address] Social History Tobacco Use Types Packs/Day Years Used Date Smoking Tobacco: Never Assessed Comments Unknown Sex and Gender Information Value Date Recorded Sex Assigned at Not on file Legal Sex Female 5:13 PM CDT Gender Identity Not on file Sexual Orientation Not on file documented as of this encounter Plan of Treatment Upcoming Encounters Date Type Department Care Team (Late st Contact Info) Description 04/30/2025 3:00 PM EDT Office Visit [facility] - [facility] [address] [place] [id number] Ho Deras DO [address] [place], [place] [id number] documented as of this encounter Visit Diagnoses Not on filedocumented in this encounter Care Teams Rubber Press Operator Relationship Specialty Start Date End Date Ho Deras DO [address] [place] [address] PCP - General Family Medicine 08/24/22 documented as of this encounter
--- OUTSIDE RECORDS SUMMARY | 2025-03-28 10:18 | XMS_ITS | Encounter Summary ---
Author Organization [facility] Address [address] [place] [address] Care Team Providers Care Technical Administrative Assistant Name Role Phone Ho Deras Primary Care Provider [phone] Reason for Visit * Reason Onset Date Comments Med Refill 09/29/2021 Encounter Details Date Type Department Care Team (Late st Contact Info) Description 09/29/2021 Refill [facility] [address] [place] [address] Yohan Barnhart MD [address] [facility] [address] [place] [address] Social History Tobacco Use Types Packs/Day Years Used Date Smoking Tobacco: Never Smokeless Tobacco: Never Alcohol Use Standard Drinks/Week Comments Yes 0 (1 standard drink = 0.6 oz pur e alcohol) occas Comments Unknown Sex and Gender Information Value Date Recorded Sex Assigned at Not on file Legal Sex Female 8:33 PM EDT Gender Identity Not on file Sexual Orientation Not on file COVID-19 Exposure Response Date Recorded In the last month, have you been in contact with someone who was confirmed or suspected to have Coronavirus / COVID-19? No / Unsure 09/24/2021 5:12 AM EST documented as of this encounter Miscellaneous Notes * Telephone Encounter - Aleksandra Morrissey RN - 09/30/2021 1:06 PM EST Med refilled by [facility] * Telephone Encounter - Marisol Johnson - 09/30/2021 11:31 AM EST Patient is calling to check the status of pain medication * Telephone Encounter - Ritika Longo - 09/29/2021 11:24 AM EST Patient Phone Message Reason for Call: DOS 09/24/2021 R shoulder arthroscopic rotator cuff repair with bicep tenodesis. Patient is callingabout her pain and states she fell on Tuesday but didn't hit her arm but did use her hand to grab and catch herself. Patient states she is out of pain meds (oxycodone) and wasn't sure if she can get refills, does state the 5mg didn't seem to help much though. Pharmacy is [facility] in [facility]. Best contact number and optimal time of day to reach caller: [phone] Note: Please do not reply to this message. Follow-up communication and further actions as a result of this message need to be communicated with the patient directly, if the patient is not active onMyChart. If the patient is active on MyChart, they will receive notification of the communication/outcome via [employer] documented in this encounter Plan of Treatment Not on file documented as of this encounter Visit Diagnoses Not on filedocumented in this encounter Additional Health Concerns Assessment Noted Time A fall risk assessment has been complete d for the patient 08/25/2021 10:14 AM EST documented as of this encounter Care Teams Technical Administrative Assistant Relationship Specialty Start Date End Date Ho Deras DO [address] [place] [address] PCP - General 02/13/21 documented as of this encounter
--- OUTSIDE RECORDS SUMMARY | 2025-03-28 10:18 | XMS_ITS | Encounter Summary ---
Author Organization [facility] Address [address] [place] [address] Care Team Providers Care Foreign Banknote Teller Name Role Phone Ho Deras DO Primary Care Provider [phone] Reason for Visit * Reason Onset Date Comments Medication Request 07/24/2024 Encounter Details Date Type Department Care Team (Late st Contact Info) Description 07/24/2024 Telephone [facility] - [facility] [address] [place] [address] Ho Deras DO [address] [place] [address] Medication Request Social History Tobacco Use Types Packs/Day Years Used Date Smoking Tobacco: Never Smokeless Tobacco: Never Alcohol Use Standard Drinks/Week Comments Yes 0 (1 standard drink = 0.6 oz pur e alcohol) PHQ-2 Answer Date Recorded Patient Health Questionnaire-2 Score 0 07/03/2024 Interpersonal Safety Answer Date Record ed Family [...] file 2023 Family and Community Support Answer Wlibur e Recorded Help with Day to Day Activities Not on file 10/20/2023 Feeling Lonely or Isolated Not on file 10/20 Educational Attainment Answer Date Johnny rded Speak language other than Venezuelan at home Not on file 10/20/2023 Want [...] encounter Miscellaneous Notes * Telephone Encounter - Inessa Rangel - 07/24/2024 1:20 PM EDT Reason for Call: Refill request (not on med list) Next Visit: 11/06/2024 Last Visit: 07/03/2024 Ho Deras, DO Appointment offered if no next visit scheduled? no Is patient requesting more than one medication refill? no Medication name: stool softener Dose: Sig (prescription label instruction): Quantity: Last Refill: Preferred Pharmacy: [facility] [id number] Pharmacy Address:[address], [facility] [address] Pharmacy Pharmacy Should selected pharmacy be patient's default? yes Patient Advised: Refills can take up to 72 hours to be verified, processed, and refilled, Please contact the pharmacy to verify the prescription is complete and ready for pick-up. Additional information: Patient advised Dr. Deras had prescribed her a stool softener years ago. Patient is calling to seeif he can call her something in again Caller Name:Brad Terry Relation to patient:self Best Call Back OK to leave message on voicemail: no documented in this encounter Plan of Treatment Upcoming Encounters Date Type Department Care Team (Late st Contact Info) Description 04/30/2025 3:00 PM EDT Office Visit [facility] - [facility] [address] [place] [address] Ho Deras DO [address] [place] [address] documented as of this encounter Visit Diagnoses Not on filedocumented in this encounter Care Teams Foreign Banknote Teller Relationship Specialty Start Date End Date Ho Deras DO [address] [place] [address] PCP - General Family Medicine 08/24/22 documented as of this encounter
--- OUTSIDE RECORDS SUMMARY | 2025-03-28 10:18 | XMS_ITS | Encounter Summary ---
Author Organization [facility] Address [address] [place] [address] Care Team Providers Care Blacksmith Hammer Operator Name Role Phone Ho Deras DO Primary Care Provider [phone] Reason for Visit * Reason Onset Date Comments Medication Refill 07/24/2024 Encounter Details Date Type Department Care Team (Late st Contact Info) Description 07/24/2024 Telephone [facility] Primary [facility] - [facility] [address] [place] [address] Ho Deras DO [address] [place], [place] [phone] Medication Refill Social History Tobacco Use Types [...] Date Johnny rded Speak language other than Monegasque at home Not on file 10/20/2023 Want [...] Telephone Encounter - Inessa Rangel - 07/24/2024 1:17 PM EDT Reason for Call: Refill request (not on med list) Next Visit: 11/06/2024 Last Visit: 07/03/2024 Ho Deras, DO Appointment offered if no next visit scheduled? no Is patient requesting more than one medication refill? no Medication name: LORazepam (ATIVAN) 0.5 MG tablet Dose: 0.5 mg Sig (prescription label instruction): Take 1 tablet (0.5 mg total) by mouth every 8 (eight) hours as needed for anxiety for up to 10 days. Max Daily Amount: 1.5 mg Quantity: 30 tablet Last Refill: Preferred Pharmacy: [facility] [id number] Pharmacy Address:[address] [place] [address] Pharmacy Pharmacy Should selected pharmacy be patient's default? yes Patient Advised: Refills can take up to 72 hours to be verified, processed, and refilled, Please contact the pharmacy to verify the prescription is complete and ready for pick-up. Additional information: Patient is requesting refill. Caller Name:Brad Terry Relation to patient:self Best Call Back OK to leave message on voicemail: no documented in this encounter Plan of Treatment Upcoming Encounters Date Type Department Care Team (Late st Contact Info) Description 04/30/2025 3:00 PM EDT Office Visit [facility] Primary [facility] - [facility] [address] [place] [address] Ho Deras DO [address] [place] [address] documented as of this encounter Visit Diagnoses Not on filedocumented in this encounter Care Teams Blacksmith Hammer Operator Relationship Specialty Start Date End Date Ho Deras DO [address] [place] [address] PCP - General Family Medicine 08/24/22 documented as of this encounter
--- OUTSIDE RECORDS SUMMARY | 2025-03-28 10:18 | XMS_ITS | Encounter Summary ---
Author Organization [facility] Address [address] [place] [address] Care Team Providers Care Corporate Travel Expert Name Role Phone Ho Deras DO Primary Care Provider [phone] Reason for Referral * Diagnostic X-Ray (Routine) - Closed Specialty Diagnoses / Procedures Referred By Contharsha t Referred To Contact Diagnoses Left knee pain, unspecified chronicity Procedures XR KNEE 4 VIEWS LEFT Weight Bearing [place], Provider Not In The System, [place] [address] Referral ID Status Reason Start Date Expiration Date Visits Re quested Visits Authorized [id number] Closed 02/17/2023 08/16/2023 1 1 Encounter Details Date Type Department Care Team (Late st Contact Info) Description 02/17/2023 Outside Orders [facility] Admitting [address] [place] [phone] [facility], Provider Not In The System, [place] [address] Arthralgia of left lower leg; Left knee pain, unspecified chronicity Social History Tobacco Use Types Packs/Day Years Used Date Smoking Tobacco: Never Smokeless Tobacco: Never Alcohol Use Standard Drinks/Week Comments Yes 0 (1 standard drink = 0.6 oz pur e alcohol) Comments Unknown Sex and Gender Information Value Date Recorded Sex Assigned at Not on file Legal Sex Female 5:13 PM CDT Gender Identity Not on file Sexual Orientation Not on file COVID-19 Exposure Response Date Recorded In the last 10 days, have yo u been in contact with someone who was confirmed or suspected to have Coronavirus/COVID-19? No / Unsure 02/17/2023 11:51 AM EDT documented as of this encounter Plan of Treatment Upcoming Encounters Date Type Department Care Team (Late st Contact Info) Description 04/30/2025 3:00 PM EDT Office Visit [facility] [address] [place] [address] Ho Deras DO [address] [place] [address] documented as of this encounter Results * XR KNEE 4 VIEWS LEFT Non-Weight Bearing (02/17/2023 12:13 PM EDT) Anatomical Region Laterality Modality Knee X-Ray 02/17/2023 12:5 9 PM EDT Impressions 02/17/2023 1:07 PM EDT No acute fracture. Images reviewed, interpreted, and dictated by Dr. Elmo Lal. Transcribed by Sadie Lopez PA-C. Narrative 02/17/2023 1:07 PM EDT LEFT KNEE SERIES. HISTORY: Left knee pain, fall. FINDINGS:Four views show no evidence of an acute, displaced fracture or dislocation of the visualized bony architecture. The joint spaces appear normal. No soft tissue abnormality is seen. No effusion identified. Procedure Note Elmo Lal MD - 02/17/2023 LEFT KNEE SERIES. HISTORY: Left knee pain, fall. FINDINGS:Four views show no evidence of an acute, displaced fracture or dislocation of the visualized bony architecture. The joint spaces appear normal. No soft tissue abnormality is seen. No effusion identified. IMPRESSION: No acute fracture. Images reviewed, interpreted, and dictated by Dr. Elmo Lal. Transcribed by Sadie Lopez PA-C. us Provider Not In The System [facility] ORDERABLES Final Result documented in this encounter Visit Diagnoses Diagnosis Arthralgia of left lower leg Left knee pain, unspecified chronicity Left knee pain, unspecified chronicity documented in this encounter Care Teams Corporate Travel Expert Relationship Specialty Start Date End Date Ho Deras, [address] [place] [address] PCP - General Family Medicine 08/24/22 documented as of this encounter
--- OUTSIDE RECORDS SUMMARY | 2025-03-28 10:18 | XMS_ITS | Encounter Summary ---
Author Organization Healthcare Address [address] [place] [address] Care Team Providers Care Regional Project Manager Name Role Phone Ho Deras Primary Care Provider Encounter Details Date Type Department Care Team (Late st Contact Info) Description 08/21/2021 Lab Requisition [facility] [address] [place] [address] Lillie Oshea MD [address] [facility] [address] [place] [phone] Encounter for screening for malignant neoplasm of colon Social History Tobacco Use Types Packs/Day Years Used Date Smoking Tobacco: Never Alcohol Use Standard Drinks/Week Comments [...] have Coronavirus / COVID-19? No / Unsure 08/18/2021 9:40 AM EST documented as of this encounter Plan of Treatment Not on file documented as of this encounter Procedures Procedure Name Priority Date/Time Associated Diagnosis Comments SURGICAL PATHOLOGY EXAM Routine 08/21/2021 Encounter for screening for malignant neoplasm of colon documented in this encounter Results * Surgical Pathology Exam (08/21/2021) Case Report Surgical Pathology Case: [id number] Authorizing Provider: Lillie Oshea MD Collected: 08/21/2021 Ordering Location: [facility] Lab Received: 08/21/2021 1243 Pathologist: Mireya Blas MD Specimens: A) - Colon, Cecal polyp B) - Colon, Transverse colon polyp C) - Colon, Sigmoid polyp 08/24/2021 1:07 PM EST [facility] Final Diagnosis A Cecum, biopsy: Hyperplastic polyp B Transverse colon, biopsy: Hyperplastic polyp C Sigmoid colon, biopsy: Melanosis coli No features of polyp identified 08/24/2021 1:07 PM EST [facility] at 1307 EST Clinical Information Z12.11 - Encounter for screening for malignant neoplasm of colon [ICD-10-CM] 08/24/2021 1:07 PM EST [facility] Microscopic Description 08/24/2021 1:07 PM EST [facility] Gross Description A. CECAL POLYP The specimen is received in formalin labeled cecal polyp , and consists of a yellow-rivero soft tissue fragment measuring 1.3 cm in greatest dimension. Entirely submitted in cassette A1. Jaye L Jennifer B. TRANSVERSE COLON POLYP The specimen is received in formalin labeled transverse colon polyp , and consists of a yellow-brown soft tissue fragment measuring 0.8 cm in greatest dimension. Entirely submitted in cassette B 1. Jaye L Jennifer C. SIGMOID POLYP The specimen is received in formalin labeled sigmoid polyp , and consists of a red-rivero soft tissue fragment measuring 1.2 cm in greatest dimension. Entirely submitted in cassette C 1. Jaye L Jennifer 08/24/2021 1:07 PM EST [facility] Note: A resident was involved in the service. I attest I examined the relevant preparations for the specimens and confirmed the diagnosis or interpretation. 08/24/2021 1:07 PM EST [facility] Tissue Colon structure / Unknown 08/21/2021 08/21/2021 12:43 PM EST Tissue specimen (specimen) Colon structure / Unknown 08/21/2021 08/21/2021 12:43 PM EST Tissue specimen (specimen) Colon structure / Unknown 08/21/2021 08/21/2021 12:43 PM EST us Lillie Oshea MD LAB PATHOLOGY ORDERABLES Final Result [facility] [address] [place] [address] documented in this encounter Visit Diagnoses Diagnosis Encounter for screening for malignant neoplasm of colon documented in this encounter Care Teams Regional Project Manager Relationship Specialty Start Date End Date Ho Deras DO [address] [place] [address] PCP - General 02/13/21 documented as of this encounter
--- OUTSIDE RECORDS SUMMARY | 2025-03-28 10:18 | XMS_ITS | Clinical Summary ---
Author Organization [facility] Address [address] [place] [address] Care Team Providers Care Records Tech Name Role Phone Ho Deras DO Primary Care Provider [phone] Allergies Active Allergy Reactions Criticality Noted Date Comments Amitriptyline 09/13/2022 Not effective Aspirin Other (See Comments) 06/16/2021 Dyspepsia Vortioxetine 12/27/2023 Increased headaches Cariprazine 12/27/2023 Cat on ceiling increased anxiety Medications cyclobenzaprine (FLEXERIL) 10 MG tablet Take 1 tablet by mouth 2 (two) times daily. 021 Active multivitamin capsule Take 1 capsule by mouth. Active omega 3-ymc-wjx-fish oil (Fish OiL) 120-180-500 mg Cap Take [...] 20mg She is under grief counseling in [place]. Arthralgia of shoulder 07/21/2021 Overview (03/19/2025): S/p [...] (07/03/2024): 07/03/24 c-scope 08/2021: at Mammogram @ [facility] 09/2022. Defers flu vaccine Assessment & Plan (07/03/2024 3:56 PM EDT): Wellness today. C-scope in 2020. Reviewed path from [place]. Recheck in 2025 Mammo: she gets this at [facility] Defers flu vaccine. Patient Counseling: --Nutrition: [...] Plan (12/27/2023 3:40 PM EDT): [place]/ [facility] [place] Has had benefit w/ injection from the [...] nurtec odt As needed relpax as needed. Encounters Date Type Department Care Team Description 03/25/[address] [phone] Ho Deras, 03/19/2025 3:00 PM EDT Office Visit [address] [phone] Ho Deras, Pain in joint of left shoulder (Primary Dx); Hot flashes due to menopause; Anxiety; Primary insomnia; Cervical radiculopathy; Restless legs syndrome 03/19/2025 Travel 03/18/[address] [phone] Ho Deras DO Primary insomnia; Migraine without aura and without status migrainosus, not intractable 01/14/[address] [phone] Ho Deras, Hot flashes due to menopause from Last 3 Months Immunizations Name Administration Dates Next Due Hep A / Hep B 07/16/2008 Influenza Four-qiv Pf 07/28/2020,08/03/2018,07/03 Tdap 09/13/2022,07/08/2011 Family History Medical History Relation Name Comments Coronary artery disease Father Liver cancer Father Pancreatic cancer Father Breast cancer Maternal Grandmother Relation Name Status Comments Father Maternal Grandmother Social History Tobacco Use Types Packs/Day Years [...] Date Johnny rded Speak language other than Indonesian at home Not on file 10/20/2023 Want [...] Description 04/30/2025 3:00 PM EDT Office Visit [facility] - [facility] [address] [place] [address] Ho Deras, DO [address] [place] [address] Health Maintenance Due Date Last Done Comments CT Colonography 1966 FOBT/FIT 1966 Fit-DNA (Cologuard) 1966 Sigmoidoscopy 1966 HIV Screening 1981 Hepatitis C Screening 1984 Pap Smear 1987 Pneumococcal 50+ years (1 of 1 - PCV) 2016 Shingles Vaccine (Zoster) (1 of 2) 2016 Colonoscopy 08/31/2024 08/31/2021 Colorectal Cancer Screening 08/31/2024 Breast Cancer Screening 08/21/2026 08/21/20, 09/06/2022, 08/31/2022 Lipid Panel 08/08/2029 08/08/2024, 01/18/2024 DTAP/TDAP/TD VACCINES (4 - T d or Tdap) 09/13/2032 09/13/2022, 07/25/2015, 07/08/2011 Tobacco Cessation Counseling and Screening (12+) Discontinued 11/06/2024 COVID-19 VACCINE Discontinued Influenza Vaccine Discontinued Procedures Procedure Name Priority Date/Time Associated Diagnosis Comments MAMMOGRAPHY Routine 08/21/2024 9:53 AM EST LIPID PANEL Routine 08/08/2024 9:17 AM EST Encounter for general adult medical examination without abnormal findings from Last 3 Months or Most Recently Relevant to Health Maintenance Results * MAMMOGRAPHY (08/21/2024 9:53 AM EST) Anatomical Region Laterality Modality Other us Historical Provider HEALTH MAINTENANCE Final Result * (ABNORMAL) Lipid [...] AM EST Performed at: 01 - [facility] [address] [id number] Packer: Vivek Zambrano PhD, Phone: [phone] us Ho Deras DO LAB BLOOD ORDERABLES Final Resul t [facility] from Last 3 Months or Most Recently Relevant to Health Maintenance Insurance [facility] Care Teams Records Tech Relationship Specialty Start Date End Date Ho Deras DO [address] [place] [address] PCP - General Family Medicine 08/24/22
== END 2025-03-28 23:59 | disposition home or self-care (01) ==
LOC: RAD 10:15
PROVIDERS: PCP Family Medicine; Visit Provider Orthopaedic Surgery
DX: S42.032A Displaced fracture of lateral end of left clavicle, initial encounter for closed fracture (principal)
CPT/HCPCS: 73030